=== PATIENT | male | born 1930 | race Caucasian/White ===

== ENCOUNTER 2019-08-25 20:42 | Inpatient (IN) | payer MEDICARE, BC ==
--- NOTE | 2019-08-25 21:28 | EDM.PDOC ---
<KobePushpa - Last Filed: 08/25/19 21:28> ED HPI GENERAL MEDICAL PROBLEM - General Chief Complaint: General Stated Complaint: KNEE Time Seen by Provider: 08/25/19 21:28 Source of Information: Reports: Patient History Limitations: Reports: No Limitations - Related Data Allergies Allergy/AdvReac Type Severity Reaction Status Date / Time No Known Allergies Allergy Verified 08/25/19 21:00 Past Medical History HEENT History: Reports: Hard of Hearing, Impaired Vision Cardiovascular History: Reports: Afib, Hypertension Genitourinary History: Reports: Prostate Disorder Neurological History: Reports: Concussion Psychiatric History: Reports: Dementia Hematologic History: Reports: Anticoagulation Therapy Social & Family History - Tobacco Use Smoking Status *Q: Former Smoker Used Tobacco, but Quit: Yes Month/Year Tobacco Last Used: 2004 Course - Vital Signs Last Recorded V/S: Last Vital Signs Temp 37.5 C 08/25/19 21:18 Pulse 89 08/25/19 21:18 Resp 20 08/25/19 23:20 BP 152/81 H 08/25/19 23:20 Pulse Ox 94 L 08/25/19 23:20 - Orders/Labs/Meds Labs: Laboratory Tests 08/25/19 08/25/19 08/25/19 Range/Units 21:32 21:32 21:53 WBC 9.4 (4.5-11.0) K/uL RBC 4.05 L (4.30-5.90) M/uL Hgb 12.7 (12.0-15.0) g/dL Hct 39.2 L (40.0-54.0) % MCV 97 (80-98) fL MCH 31 (27-31) pg MCHC 32 (32-36) % Plt Count 308 (150-400) K/uL Neut % (Auto) 84 H (36-66) % Lymph % (Auto) 6 L (24-44) % [place] % (Auto) 10 H (2-6) % Eos % (Auto) 0 L (2-4) % Baso % (Auto) 0 (0-1) % PT 15.1 H (9.5-12.0) sec INR 1.43 H (0.80-1.20) Urine Color [place] A (YELLOW) Urine Appearance Clear (CLEAR) Urine pH 5.5 (5.0-8.0) Ur Specific [place] >= 1.030 (1.008-1.030) Urine Protein 100 H (NEGATIVE) mg/dL Urine Glucose (UA) Negative (NEGATIVE) mg/dL Urine Ketones Negative (NEGATIVE) mg/dL Urine Occult Blood Moderate H (NEGATIVE) Urine Nitrite Negative (NEGATIVE) Urine Bilirubin Small H (NEGATIVE) Urine Urobilinogen 1.0 (0.2-1.0) EU/dL Ur Leukocyte Esterase Negative (NEGATIVE) Urine RBC 5-10 H (0-5) Urine WBC Not seen (0-5) Ur Epithelial Cells Not seen Amorphous Sediment Many Urine Bacteria Not seen Urine Mucus Not seen Departure - Departure Disposition: Admitted As Inpatient 66 Clinical Impression: Knee pain, right, Weakness generalized - Discharge Information <Amie Luciano - Last Filed: 08/26/19 00:23> ED HPI GENERAL MEDICAL PROBLEM - General Source of Information: Reports: Patient, Family (Daughter Keeley Dickson) History Limitations: Reports: No Limitations - History of Present Illness INITIAL COMMENTS - FREE TEXT/NARRATIVE: chief complaint; right knee pain and fall at home This is a 89 year old male present to the ER with Daughter Keeley and Grandchildren. The family reports this morning, Mr. Figueroa's right knee was painful, difficult to walk. Then this evening he was in the bathroom and fell. He got wedged between the toilet and the tub. Family was able to get him up quickly. He has been living with his Daughter since January, but now she reports she is unable to care for her Father, Both her and her work during the day. She feels it is unsafe for him to be at home alone during the day. During the past year he has been in two Nursing Homes, [facility] [place], [place]. and [facility] in [place], [place]. He is also a . Family is not willing to take Mr. Peterson home unless he is able to walk. Onset: Sudden (right knee), Gradual (Family reports gradual decline in health the past few years. ) Duration: Getting Worse (weakness) Location: Reports: Back (low back pain from fall), Lower Extremity, Right ( right knee pain without injury. ), Generalized Quality: Reports: Ache, Pressure Severity: Mild Improves with: Reports: Rest Worsens with: Reports: Movement Associated Symptoms: Reports: Weakness Social & Family History - Living Situation & Occupation Living situation: Reports: , with Family Occupation: Retired (Lives with his only Child Keeley Dickson in [place], [place]. His 7 years ago.) ED ROS GENERAL - Review of Systems Review Of Systems: See Below Constitutional: Reports: Weakness, Fatigue HEENT: Reports: No Symptoms, Glasses (wears glasses) Respiratory: Reports: No Symptoms Cardiovascular: Reports: No Symptoms, Other (chronic AFib with coumadin therapy. ) Endocrine: Reports: No Symptoms GI/Abdominal: Reports: No Symptoms : Reports: Frequency, Urgency Musculoskeletal: Reports: Back Pain (chronic low back pain for months), Joint Pain (right knee pain without injury) Skin: Reports: Change in Color (lower legs with chronic discoloration . no signs of secondary infection) Neurological: Reports: Difficulty Walking (pre-existing), Weakness (generalized weakness, progressive over the past year per Family), Gait Disturbance ( ambulates with cane) Psychiatric: Reports: No Symptoms Hematologic/Lymphatic: Reports: Other (coumadin therapy for chronic AFib) Immunologic: Reports: No Symptoms ED EXAM, GENERAL - Physical Exam Exam: See Below Exam Limited By: Physical Impairment General Appearance: Alert, No Apparent Distress, Other (frail elderly male. alert oriented to name, date and place.) Eye Exam: Bilateral Eye: EOMI, Normal Inspection, PERRL Ears: Normal External Exam Nose: Normal Inspection, Normal Mucosa, No Blood Throat/Mouth: Normal Inspection, Normal Lips, Normal Teeth, Normal Gums, Normal Voice, No Airway Compromise Head: Atraumatic, Normocephalic Neck: Normal Inspection, Supple, Non-Tender, Full Range of Motion Respiratory/Chest: No Respiratory Distress, Lungs Clear, No Accessory Muscle Use , Chest Non-Tender Cardiovascular: Regular Rate, Rhythm, No Murmur GI/Abdominal: Normal Bowel Sounds, Soft, Non-Tender, No Distention, No Abnormal Bruit, Pelvis Stable (Male) Exam: Deferred Rectal (Males) Exam: Deferred Back Exam: Normal Inspection, Full Range of Motion, Other (pain noted to low back) Extremities: Joint Swelling (right knee with edema, pain with any range of motion. redness noted to right knee but family reports had a heating pad to the knee all day.), Limited Range of Motion Neurological: Confused (re-orientated to place. but other funk able to recall past and recent events. ) Psychiatric: Normal Affect, Normal Mood Skin Exam: Warm, Dry, Intact, Normal Color, No Rash Lymphatic: No Adenopathy Course - Re-Assessments/Exams Free Text/Narrative Re-Assessment/Exam: 08/26/19 00:18 labs; cbc wbc 9.4, hgb 12.7, hct 39.2 PT 15.1, INR 1.43 ua with micro positive occult blood RBC 5-10 xray; right knee osteoarthritis, no acute bony injury is noted, lumbar spine age indeterminant compression fractures. Departure - Departure Time of Disposition: 00:20 Condition: Fair - Discharge Information *PRESCRIPTION DRUG MONITORING PROGRAM REVIEWED*: No *COPY OF PRESCRIPTION DRUG MONITORING REPORT IN PATIENT BRITTNI: No - Problem List & Annotations (1) Knee pain, right SNOMED Code(s): 41632467 Code(s): M25.561 - PAIN IN RIGHT KNEE Status: Acute Priority: High Current Visit: Yes Qualifiers: Chronicity: acute Qualified Code(s): M25.561 - Pain in right knee (2) Weakness generalized SNOMED Code(s): 30316743 Code(s): R53.1 - WEAKNESS Status: Acute Priority: High Current Visit: Yes - Problem List Review Problem List Initiated/Reviewed/Updated: Yes - Assessment/Plan Assessment:: will plan to admit to hospital for right knee pain, weakness will plan to have consult to OT and PT referral to [facility] for [facility] placement - Family is unable to care for Mr. Peterson, and not willing to take him home.
--- NOTE | 2019-08-25 23:39 | CRLCR ---
INDICATION: Pain after fall TECHNIQUE: Lumbar spine 3 view COMPARISON: None FINDINGS: Bones: Transitional appearance of lumbar spine. For the purposes of nomenclature the last rib-bearing vertebral body is labeled as T12. Transitional vertebra is labeled as S1. Using this nomenclature, there is decreased height of the L1 vertebral body anteriorly consistent with a compression fracture with loss of height between 50 and 75 percent. Joints: Small diffuse osteophytes with disc space narrowing at the L4-5 level. Facet hypertrophy L5-S1. Soft tissues: Atherosclerosis. IMPRESSION: Age-indeterminate compression fracture of the L1 vertebral body with loss of height between 50 and 75 percent anteriorly. Dictated by Cecilio Arias MD @ Aug 25 2019 11:35PM Signed by Dr. Cecilio Arias @ Aug 25 2019 11:38PM
--- NOTE | 2019-08-25 23:42 | CRLCR ---
Indication: Fall, pain and swelling. Technique: Right knee 2 views, 4 films Comparison: None Findings: Bones: Alignment is normal. No fractures or bone lesions. Joint spaces: Mild chondrocalcinosis with small osteophytes and small knee effusion. Soft tissues: Atherosclerosis. Impression: No evidence of fracture. Mild right knee osteoarthritis with small knee effusion. Dictated by Cecilio Arias MD @ Aug 25 2019 11:38PM Signed by Dr. Cecilio Arias @ Aug 25 2019 11:39PM
[2019-08-26] MEDS ORDERED: Docusate Sodium 100 MG Cap PO PRN (00:03)
[2019-08-26] MEDS ORDERED: Ondansetron 4 MG/2 ML SDV IV PRN (00:03)
[2019-08-26] MEDS ORDERED: Acetaminophen 325 MG Tab PO PRN (00:03)
[2019-08-26] MEDS ORDERED: Sodium Chloride 0.9% 10 ML Syringe FLUSH PRN (00:03)
[2019-08-26] MEDS ORDERED: oxyCODONE 5 MG Tab PO PRN (00:03)
[2019-08-26] MEDS ORDERED: Ondansetron 4 MG Tab.DIS PO PRN (00:03)
[2019-08-26] MEDS ORDERED: Bisacodyl 5 MG Tab PO PRN (00:03)
--- NOTE | 2019-08-26 00:24 | PCM.HP.2 ---
H&P History of Present Illness - General Date of Service: 08/25/19 Admit Problem/Dx: Admission Diagnosis/Problem Admission Diagnosis/Problem Knee pain Source of Information: Patient, Family History Limitations: Reports: Altered Mental Status - History of Present Illness Initial Comments - Free Text/Narative: - History of Present Illness INITIAL COMMENTS - FREE TEXT/NARRATIVE: chief complaint; right knee pain and fall at home This is a 89 year old male present to the ER with Daughter Keeley and Grandchildren. The family reports this morning, Mr. Figueroa's right knee was painful, difficult to walk. Then this evening he was in the bathroom and fell. He got wedged between the toilet and the tub. Family was able to get him up quickly. He has been living with his Daughter since January, but now she reports she is unable to care for her Father, Both her and her work during the day. She feels it is unsafe for him to be at home alone during the day. During the past year he has been in two Nursing Homes, [facility] [place], [place]. and [facility] in [place], [place]. He is also a . Family is not willing to take Mr. Peterson home unless he is able to walk. Onset: Sudden (right knee), Gradual (Family reports gradual decline in health the past few years. ) Duration: Getting Worse (weakness) Location: Reports: Back (low back pain from fall), Lower Extremity, Right ( right knee pain without injury. ), Generalized Quality: Reports: Ache, Pressure Severity: Mild Improves with: Reports: Rest Worsens with: Reports: Movement Associated Symptoms: Reports: Weakness Onset of Symptoms: Reports: Sudden (fall today at home. work up this morning with right knee pain), Gradual Location: Reports: Lower Extremity, Right (right knee pain without injury), Generalized (weakness for the past few years. ) Severity: Moderate Improves with: Reports: Rest Worsens with: Reports: Movement Context: Reports: Other (fall this evening in the bathroom.) Associated Symptoms: Reports: Weakness (worsen over the past year.) - Related Data Allergies/Adverse Reactions: Allergies Allergy/AdvReac Type Severity Reaction Status Date / Time No Known Allergies Allergy Verified 08/25/19 21:00 Home Medications: Home Meds Cyanocobalamin (Vitamin B-12) [Vitamin B-12] 2 tab PO DAILY 08/25/19 [History] Diltiazem [Diltiazem XR] 180 mg PO DAILY 08/25/19 [History] Finasteride 5 mg PO DAILY 08/25/19 [History] Losartan [Cozaar] 25 mg PO DAILY 08/25/19 [History] Warfarin [Coumadin] 1.5 tab PO ASDIRECTED 08/25/19 [History] Warfarin [Coumadin] 5 mg PO WEEKLY 08/25/19 [History] atorvaSTATin [Lipitor] 40 mg PO BEDTIME 08/25/19 [History] Past Medical History HEENT History: Reports: Hard of Hearing, Impaired Vision Cardiovascular History: Reports: Afib, Hypertension Genitourinary History: Reports: Prostate Disorder Neurological History: Reports: Concussion Psychiatric History: Reports: Dementia Hematologic History: Reports: Anticoagulation Therapy Social & Family History - Tobacco Use Smoking Status *Q: Former Smoker Used Tobacco, but Quit: Yes Month/Year Tobacco Last Used: 2004 - Living Situation & Occupation Living situation: Reports: , with Family Occupation: Retired (Lives with his only Child Keeley Dickson in [place], [place]. His 7 years ago.) H&P Review of Systems - Review of Systems: Review Of Systems: See Below General: Reports: Weakness, Fatigue HEENT: Reports: No Symptoms Pulmonary: Reports: No Symptoms Cardiovascular: Reports: No Symptoms, Other (anti-coagulation for chronic Afib) Gastrointestinal: Reports: No Symptoms Genitourinary: Reports: Frequency, Urgency Musculoskeletal: Reports: Back Pain (lower back pain - history of multi falls at home), Joint Pain (right knee pain) Skin: Reports: Other (lower legs with chronic discoloration and intermittent edema) Psychiatric: Reports: No Symptoms Neurological: Reports: Confusion, Pre-Existing Deficit, Difficulty Walking, Weakness Hematologic/Lymphatic: Reports: Easy Bleeding (coumadin therapy for chronic Afib ) Immunologic: Reports: No Symptoms Exam - Exam Exam: See Below - Vital Signs Vital Signs: Last Vital Signs Temp 37.5 C 08/25/19 21:18 Pulse 89 08/25/19 21:18 Resp 20 08/25/19 23:20 BP 152/81 H 08/25/19 23:20 Pulse Ox 94 L 08/25/19 23:20 Weight: 95.254 kg - Exam General: Alert, Cooperative, Other (mild confusion to where he is, but able to recall past and current events. talkative) HEENT: PERRLA, Conjunctiva Clear, EOMI, Hearing Intact, Mucosa Moist & Notus, Nares Patent, Glasses Neck: Supple, Trachea Midline Lungs: Clear to Auscultation, Normal Respiratory Effort, Decreased Breath Sounds Cardiovascular: Irregular Rhythm GI/Abdominal Exam: Normal Bowel Sounds, Soft, Non-Tender, No Distention, No Abnormal Bruit, Pelvis Stable (Male) Exam: Deferred Rectal (Males) Exam: Deferred Back Exam: Normal Inspection (back is without any sign of trauma, no abrasion, scrapes, no bruising, no lumps or bumps or hematoma. tender to exam low back.), Other (low back pain ) Extremities: Pedal Edema, Limited Range of Motion (right knee increased pain with any range of motion. ) Peripheral Pulses: 2+: Posterior Tibial (L), Posterior Tibial (R) Skin: Warm, Dry, Ecchymosis (chronic lower legs.) Neurological: Strength Equal Bilateral, Normal Speech, Normal Tone Neuro Extensive - Mental Status: Alert, Normal Mood/Affect, Memory Intact, Disorientation to Place Neuro Extensive - Motor, Sensory, Reflexes: Motor/Sensory Deficits Psychiatric: Alert, Normal Affect, Normal Mood - Patient Data Lab Results Last 24 hrs: Laboratory Results - last 24 hr 08/25/19 08/25/19 08/25/19 Range/Units 21:32 21:32 21:53 WBC 9.4 (4.5-11.0) K/uL RBC 4.05 L (4.30-5.90) M/uL Hgb 12.7 (12.0-15.0) g/dL Hct 39.2 L (40.0-54.0) % MCV 97 (80-98) fL MCH 31 (27-31) pg MCHC 32 (32-36) % Plt Count 308 (150-400) K/uL Neut % (Auto) 84 H (36-66) % Lymph % (Auto) 6 L (24-44) % [place] % (Auto) 10 H (2-6) % Eos % (Auto) 0 L (2-4) % Baso % (Auto) 0 (0-1) % PT 15.1 H (9.5-12.0) sec INR 1.43 H (0.80-1.20) Urine Color [place] A (YELLOW) Urine Appearance Clear (CLEAR) Urine pH 5.5 (5.0-8.0) Ur Specific [place] >= 1.030 (1.008-1.030) Urine Protein 100 H (NEGATIVE) mg/dL Urine Glucose (UA) Negative (NEGATIVE) mg/dL Urine Ketones Negative (NEGATIVE) mg/dL Urine Occult Blood Moderate H (NEGATIVE) Urine Nitrite Negative (NEGATIVE) Urine Bilirubin Small H (NEGATIVE) Urine Urobilinogen 1.0 (0.2-1.0) EU/dL Ur Leukocyte Esterase Negative (NEGATIVE) Urine RBC 5-10 H (0-5) Urine WBC Not seen (0-5) Ur Epithelial Cells Not seen Amorphous Sediment Many Urine Bacteria Not seen Urine Mucus Not seen Result Diagrams: 08/25/19 21:32 - Problem List (1) Knee pain, right SNOMED Code(s): 41804952 ICD Code: M25.561 - PAIN IN RIGHT KNEE Status: Acute Priority: High Current Visit: Yes Qualifiers: Chronicity: acute Qualified Code(s): M25.561 - Pain in right knee (2) Weakness generalized SNOMED Code(s): 77302078 ICD Code: R53.1 - WEAKNESS Status: Acute Priority: High Current Visit: Yes (3) Anticoagulant long-term use SNOMED Code(s): 680781155 ICD Code: Z79.01 - CUSTODIAL (CURRENT) USE OF ANTICOAGULANTS Status: Acute Priority: High Current Visit: Yes (4) Atrial fibrillation SNOMED Code(s): 95543025 ICD Code: I48.91 - UNSPECIFIED ATRIAL FIBRILLATION Status: Acute Priority : High Current Visit: Yes Qualifiers: Atrial fibrillation type: longstanding persistent Qualified Code(s): I48.11 - Longstanding persistent atrial fibrillation Problem List Initiated/Reviewed/Updated: Yes Orders Last 24hrs: Active Orders 24 hr Category Date Time Status Cardiac Monitoring [RC] .As Directed Care 08/26/19 00:03 Active Intake and Output [RC] QSHIFT Care 08/26/19 00:03 Active Notify Provider Vital Signs [RC] ASDIRECTED Care 08/26/19 00:03 Active Oxygen Therapy [RC] PRN Care 08/26/19 00:03 Active Pulse Oximetry [RC] PRN Care 08/26/19 00:03 Active Up With Assistance [RC] ASDIRECTED Care 08/26/19 00:03 Active VTE/DVT Education [RC] Per Unit Routine Care 08/26/19 00:03 Active Vital Signs [RC] Q4H Care 08/26/19 00:03 Active Consult to Case Management/Certified Shorthand Reporter [CONS] Cons 08/26/19 00:03 Active Routine OT Evaluation and Treatment [CONS] Routine Cons 08/26/19 00:03 Active PT Evaluation and Treatment [CONS] Routine Cons 08/26/19 00:03 Active 2 Gram Sodium Diet [DIET] Diet 08/26/19 Breakfast Active INR,PT,PROTHROMBIN TIME [COAG] AM Lab 08/26/19 05:11 Ordered INR,PT,PROTHROMBIN TIME [COAG] AM Lab 08/27/19 05:11 Ordered Acetaminophen [Tylenol] Med 08/26/19 00:03 Active 650 mg PO Q4H PRN Bisacodyl [Dulcolax] Med 08/26/19 00:03 Active 5 mg PO DAILY PRN Cyanocobalamin (Vitamin B12) [Vitamin B12] Med 08/26/19 09:00 Active 500 mcg PO DAILY Diltiazem [Cardizem CD] Med 08/26/19 09:00 Active 180 mg PO DAILY Docusate Sodium [Colace] Med 08/26/19 00:03 Active 100 mg PO BID PRN Finasteride [Proscar] Med 08/26/19 09:00 Active 5 mg PO DAILY Losartan [Cozaar] Med 08/26/19 09:00 Active 25 mg PO DAILY Ondansetron [Zofran ODT] Med 08/26/19 00:03 Active 4 mg PO Q6H PRN Ondansetron [Zofran] Med 08/26/19 00:03 Active 4 mg IV Q4H PRN Sodium Chloride 0.9% [Saline Flush] Med 08/26/19 00:03 Active 10 ml FLUSH ASDIRECTED PRN Warfarin [Coumadin] Med 08/31/19 13:00 Active 5 mg PO Q7D atorvaSTATin [Lipitor] Med 08/26/19 21:00 Active 40 mg PO BEDTIME oxyCODONE Med 08/26/19 00:03 Active 5 mg PO Q4H PRN Saline Lock Insert [OM.PC] Routine Oth 08/26/19 00:03 Ordered Sequential Compression Device [OM.PC] Per Unit Routine Oth 08/26/19 00:03 Ordered Resuscitation Status Routine Resus Stat 08/25/19 22:33 Ordered Medication Orders Acetaminophen (Tylenol) 650 mg PO Q4H PRN PRN Reason: Pain (Mild 1-3)/fever Atorvastatin Calcium (Lipitor) 40 mg PO BEDTIME JANE Bisacodyl (Dulcolax) 5 mg PO DAILY PRN PRN Reason: Constipation Cyanocobalamin (Vitamin B12) 500 mcg PO DAILY JANE Diltiazem HCl (Cardizem Cd) 180 mg PO DAILY JANE Docusate Sodium (Colace) 100 mg PO BID PRN PRN Reason: Constipation Finasteride (Proscar) 5 mg PO DAILY JANE Losartan Potassium (Cozaar) 25 mg PO DAILY JANE Ondansetron HCl (Zofran Odt) 4 mg PO Q6H PRN PRN Reason: Nausea able to take PO Ondansetron HCl (Zofran) 4 mg IV Q4H PRN PRN Reason: Nausea/Vomiting Oxycodone HCl (Oxycodone) 5 mg PO Q4H PRN PRN Reason: Pain (moderate 4-6) Sodium Chloride (Saline Flush) 10 ml FLUSH ASDIRECTED PRN PRN Reason: Keep Vein Open Warfarin Sodium (Coumadin) 5 mg PO Q7D JANE Assessment/Plan Comment:: ASSESSMENT AND PLAN - chief complaint; right knee pain and fall at home This is a 89 year old male present to the ER with Daughter Keeley and Grandchildren. The family reports this morning, Mr. Figueroa's right knee was painful, difficult to walk. Then this evening he was in the bathroom and fell. He got wedged between the toilet and the tub. Family was able to get him up quickly. He has been living with his Daughter since January, but now she reports she is unable to care for her Father, Both her and her work during the day. She feels it is unsafe for him to be at home alone during the day. The fall at home this evening confirmed her worry related to his safty at home. During the past year he has been in two Nursing Homes, [facility] [place], [place]. and [facility] in [place], [place]. He is also a [place]. Family is not willing to take Mr. Peterson home unless he is able to walk. Onset: Sudden (right knee), Gradual (Family reports gradual decline in health the past few years. ) Duration: Getting Worse (weakness) Xray of lumbar spine and right knee - no acute bony injury, osteoarthritis labs; no acute infection noted Weakness, right knee pain - this is a 89 year old male with generalized weakness and frequent falls. Unfortunately his family is unable to care for him and it is not safe for him to be at home. He is not able to ambulate without significant assistance from family. -consult to PO -consult to OT -consult to Flight Coordinator for [facility] Placement Anti-coagulation therapy for chronic A-fib -Coumandin per protocol -INR/PT in am Maintenance issues - - DVT prophylaxis - Coumadin therapy - GI prophylaxis - PPI - Nutrition - low salt - Ruiz catheter - not indicated CODE STATUS - DNR/DNI Admission justification - This patient will be admitted for inpatient services and is medically appropriate meeting medical necessity for inpatient admission as outlined in my documentation. I reasonably expect the patient will require inpatient services that span a period time over 2 midnights. I reasonably expect this patient to be discharged or transferred within 96 hours after [facility]. Disposition - anticipate discharge [facility] or home after the hospital stay Daughter (only child) Keeley Dickson [phone] Primary care physician - Dr Khushbu Magdaleno M.D. - Mortality Measure Prognosis:: Poor (declining in health due to advance age)
[2019-08-26] MEDS: Losartan 25 MG Tab PO SCH (08:52)
[2019-08-26] MEDS: Cyanocobalamin (Vitamin B12) 1,000 MCG Tab PO SCH (08:52)
[2019-08-26] MEDS: Diltiazem 180 MG Cap.CD PO SCH (08:52)
[2019-08-26] MEDS: Finasteride 5 MG Tab PO SCH (08:53)
[2019-08-26] MEDS: Acetaminophen 500 MG Tab PO SCH ×3 (09:28→20:37)
[2019-08-26] MEDS ORDERED: predniSONE 20 MG Tab PO ONE (10:00)
--- NOTE | 2019-08-26 10:02 | PCM.PN ---
- General Info Date of Service: 08/26/19 Subjective Update: There were no acute events overnight following admission. Patient is pleasantly confused but not able to offer much in the way of reliable history. He does say that his right knee is still sore but he thinks it's better today. He has not had any fevers. He has been up with his cane and standby assist. No abnormalities noted on telemetry. Functional Status: Reports: Pain Controlled, Tolerating Diet - Review of Systems General: Reports: Weakness Musculoskeletal: Reports: Joint Pain - Patient Data Vitals - Most Recent: Last Vital Signs Temp 36.2 C 08/26/19 07:00 Pulse 64 08/26/19 07:00 Resp 22 H 08/26/19 07:00 BP 149/84 H 08/26/19 08:52 Pulse Ox 94 L 08/26/19 07:00 Weight - Most Recent: 95.254 kg I&O - Last 24 Hours: Intake & Output 08/25/19 08/26/19 08/26/19 22:59 06:59 14:59 Intake Total 1540 Output Total 250 Balance -250 1540 Lab Results Last 24 Hours: Laboratory Results - last 24 hr 08/25/19 08/25/19 08/25/19 Range/Units 21:32 21:32 21:53 WBC 9.4 (4.5-11.0) K/uL RBC 4.05 L (4.30-5.90) M/uL Hgb 12.7 (12.0-15.0) g/dL Hct 39.2 L (40.0-54.0) % MCV 97 (80-98) fL MCH 31 (27-31) pg MCHC 32 (32-36) % Plt Count 308 (150-400) K/uL Neut % (Auto) 84 H (36-66) % Lymph % (Auto) 6 L (24-44) % Hill % (Auto) 10 H (2-6) % Eos % (Auto) 0 L (2-4) % Baso % (Auto) 0 (0-1) % PT 15.1 H (9.5-12.0) sec INR 1.43 H (0.80-1.20) Urine Color [place] A (YELLOW) Urine Appearance Clear (CLEAR) Urine pH 5.5 (5.0-8.0) Ur Specific [place] >= 1.030 (1.008-1.030) Urine Protein 100 H (NEGATIVE) mg/dL Urine Glucose (UA) Negative (NEGATIVE) mg/dL Urine Ketones Negative (NEGATIVE) mg/dL Urine Occult Blood Moderate H (NEGATIVE) Urine Nitrite Negative (NEGATIVE) Urine Bilirubin Small H (NEGATIVE) Urine Urobilinogen 1.0 (0.2-1.0) EU/dL Ur Leukocyte Esterase Negative (NEGATIVE) Urine RBC 5-10 H (0-5) Urine WBC Not seen (0-5) Ur Epithelial Cells Not seen Amorphous Sediment Many Urine Bacteria Not seen Urine Mucus Not seen 08/26/19 Range/Units 04:00 WBC (4.5-11.0) K/uL RBC (4.30-5.90) M/uL Hgb (12.0-15.0) g/dL Hct (40.0-54.0) % MCV (80-98) fL MCH (27-31) pg MCHC (32-36) % Plt Count (150-400) K/uL Neut % (Auto) (36-66) % Lymph % (Auto) (24-44) % Hill % (Auto) (2-6) % Eos % (Auto) (2-4) % Baso % (Auto) (0-1) % PT 14.7 H (9.5-12.0) sec INR 1.39 H (0.80-1.20) Urine Color (YELLOW) Urine Appearance (CLEAR) Urine pH (5.0-8.0) Ur Specific [place] (1.008-1.030) Urine Protein (NEGATIVE) mg/dL Urine Glucose (UA) (NEGATIVE) mg/dL Urine Ketones (NEGATIVE) mg/dL Urine Occult Blood (NEGATIVE) Urine Nitrite (NEGATIVE) Urine Bilirubin (NEGATIVE) Urine Urobilinogen (0.2-1.0) EU/dL Ur Leukocyte Esterase (NEGATIVE) Urine RBC (0-5) Urine WBC (0-5) Ur Epithelial Cells Amorphous Sediment Urine Bacteria Urine Mucus Med Orders - Current: Current Medications Acetaminophen (Tylenol Extra Strength) 1,000 mg PO TID [facility] Last Admin: 08/26/19 09:28 Dose: 1,000 mg Atorvastatin Calcium (Lipitor) 40 mg PO BEDTIME [facility] Bisacodyl (Dulcolax) 5 mg PO DAILY PRN PRN Reason: Constipation Cyanocobalamin (Vitamin B12) 500 mcg PO DAILY [facility] Last Admin: 08/26/19 08:52 Dose: 500 mcg Diltiazem HCl (Cardizem Cd) 180 mg PO DAILY [facility] Last Admin: 08/26/19 08:52 Dose: 180 mg Docusate Sodium (Colace) 100 mg PO BID PRN PRN Reason: Constipation Finasteride (Proscar) 5 mg PO DAILY [facility] Last Admin: 08/26/19 08:53 Dose: 5 mg Losartan Potassium (Cozaar) 25 mg PO DAILY [facility] Last Admin: 08/26/19 08:52 Dose: 25 mg Ondansetron HCl (Zofran Odt) 4 mg PO Q6H PRN PRN Reason: Nausea able to take PO Ondansetron HCl (Zofran) 4 mg IV Q4H PRN PRN Reason: Nausea/Vomiting Oxycodone HCl (Oxycodone) 5 mg PO Q4H PRN PRN Reason: Pain (moderate 4-6) Prednisone (Prednisone) 20 mg PO ONETIME ONE Stop: 08/26/19 10:01 Prednisone (Prednisone) 20 mg PO WITHBREAKFAST [facility] Stop: 08/28/19 08:01 Sodium Chloride (Saline Flush) 10 ml FLUSH ASDIRECTED PRN PRN Reason: Keep Vein Open Warfarin Sodium (Coumadin) 7.5 mg PO Mo@1300 [facility] Discontinued Medications Acetaminophen (Tylenol) 650 mg PO Q4H PRN PRN Reason: Pain (Mild 1-3)/fever Warfarin Sodium (Coumadin) 5 mg PO Mo@1300 [facility] - Exam Quality Assessment: No: Supplemental Oxygen General: Alert, Cooperative, No Acute Distress. No: Oriented Lungs: Normal Respiratory Effort Cardiovascular: Regular Rate GI/Abdominal Exam: Soft, No Distention Extremities: No Pedal Edema, Joint Swelling (right knee ), Increased Warmth ( right knee) Skin: Warm, Dry Psy/Mental Status: Alert, Normal Affect - Problem List Review Problem List Initiated/Reviewed/Updated: Yes - My Orders Last 24 Hours: My Active Orders 08/26/19 09:15 Acetaminophen [Tylenol Extra Strength] 1,000 mg PO TID 08/26/19 09:56 URIC ACID [CHEM] Routine 08/26/19 09:57 predniSONE 20 mg PO ONETIME ONE 08/26/19 09:58 BASIC METABOLIC PANEL,BMP [CHEM] Routine 08/26/19 10:00 Discontinue Telemetry Monitoring [Cardiac Monitoring Discontinue] [RC] Click to Edit 08/27/19 08:00 predniSONE 20 mg PO WITHBREAKFAST 08/31/19 13:00 Warfarin [Coumadin] 7.5 mg PO Mo@1300 - Plan Plan:: ASSESSMENT AND PLAN - Right knee pain - no obvious signs of trauma. Gout versus pseudogout would be considered with swelling and warmth. Does not appear to be infected. INR is low so hemarthrosis unlikely. -uric acid level -prednisone x3 days -consult to PO -consult to OT -consult to [employer] to consider Snf Placement Anti-coagulation therapy for chronic A-fib - atrial fibrillation is rate controlled. INR subtherapeutic. -Daily warfarin -Continue rate control -INR/PT in am Maintenance issues - - DVT prophylaxis - Coumadin therapy - GI prophylaxis - PPI - Nutrition - low salt Disposition - anticipate discharge Snf or home with home care after the hospital stay Daughter (only child) Keeley Dickson [phone] [place] M.D.
[2019-08-26] MEDS: Potassium Chloride 20 MEQ Tab.ER PO SCH ×2 (11:30→20:37)
[2019-08-26] MEDS ORDERED: Warfarin 2.5 MG, Warfarin 5 MG PO SCH ×2 (13:00)
[2019-08-26] MEDS ORDERED: atorvaSTATin 20 MG Tab PO SCH (21:00)
[2019-08-27] MEDS ORDERED: predniSONE 20 MG Tab PO SCH (08:00)
[2019-08-27] MEDS: Diltiazem 180 MG Cap.CD PO SCH (08:50)
[2019-08-27] MEDS: Losartan 25 MG Tab PO SCH (08:50)
[2019-08-27] MEDS: Acetaminophen 500 MG Tab PO SCH (08:51)
[2019-08-27] MEDS: Cyanocobalamin (Vitamin B12) 1,000 MCG Tab PO SCH (08:51)
[2019-08-27] MEDS: Finasteride 5 MG Tab PO SCH (08:51)
[2019-08-27] MEDS ORDERED: Warfarin 5 MG Tab PO SCH (13:00)
--- NOTE | 2019-08-27 13:15 | PCM.DCSUM1 ---
Discharge Summary - Hospital Course Brief History: 89-year-old male with history of dementia, BPH who presented with right knee pain and weakness as well as a fall at home. He was admitted for management of right knee pain and swelling. Diagnosis: Stroke: No - Discharge Data Discharge Date: 08/27/19 Discharge Disposition: Home, W Home Health Agency 06 Condition: Good - Referral to Home Health Date of Face to Face Encounter: 08/27/19 Reason for Homebound Status: travel taxing due to acute knee pain Primary Care Physician: Olivia Ring MD Skilled Need: PT - Discharge Diagnosis/Problem(s) (1) Pseudogout of right knee SNOMED Code(s): 696913989, 840359230 ICD Code: M11.261 - OTHER CHONDROCALCINOSIS, RIGHT KNEE Status: Acute Current Visit: Yes (2) Hypokalemia SNOMED Code(s): 13959152 ICD Code: E87.6 - HYPOKALEMIA Status: Acute Current Visit: Yes (3) Atrial fibrillation SNOMED Code(s): 68838991 ICD Code: I48.91 - UNSPECIFIED ATRIAL FIBRILLATION Status: Chronic Priority: High Current Visit: Yes Qualifiers: Atrial fibrillation type: permanent Qualified Code(s): I48.21 - Permanent atrial fibrillation (4) Dementia SNOMED Code(s): 35977549 ICD Code: F03.90 - UNSPECIFIED DEMENTIA WITHOUT BEHAVIORAL DISTURBANCE Status: Chronic Current Visit: No Qualifiers: Dementia type: Alzheimer's disease Alzheimer's disease onset: late-onset - Patient Summary/Data Consults: Consultations 08/26/19 00:03 Consult to Case Management/[employer] [CONS] Routine Comment: Physician Instructions: Service(s) to be Consulted: Case Manage&Social Servic Reason for Consult: custodial placement OT Evaluation and Treatment [CONS] Routine Please Evaluate and Treat. OT Reason for Consult: ADL's This query below is only for informational purposes and is not editable. PT Evaluation and Treatment [CONS] Routine Please Evaluate and Treat. PT Reason for Consult: Ambulation This query below is only for informational purposes and is not editable. Hospital Course: Jarrett presented to the emergency room with weakness and right knee pain and swelling. He had fallen at home because of the severity of the pain and weakness. Workup in the emergency room was fairly unremarkable. No significant lab abnormalities and his white count was normal. An x-ray of the knee did not show significant arthritis or fracture. He was admitted to the hospital for pain control, physical therapy and additional workup. The morning after admission for repeat evaluation was suspicious for pseudogout because of swelling, warmth and effusion of the right knee. He received a dose of prednisone the morning after admission as well as the morning of discharge. His swelling has essentially resolved. His pain is dramatically better but not quite resolved. He has been up and walking around with a walker. He feels safe at this time and his daughter feels comfortable with him home with his current level of ambulation. Patient and family were interested in some physical therapy from home health at the time of discharge. He will receive 2 more doses of prednisone after hospital discharge. - Patient Instructions Diet: Regular Diet as Tolerated Activity: As Tolerated Showering/Bathing: May Shower Notify Provider of: Increased Pain - Discharge Plan *PRESCRIPTION DRUG MONITORING PROGRAM REVIEWED*: No *COPY OF PRESCRIPTION DRUG MONITORING REPORT IN PATIENT BRITTNI: No Prescriptions/Med Rec: predniSONE 20 mg PO WITHBREAKFAST #2 tablet Home Medications: Home Meds Cyanocobalamin (Vitamin B-12) [Vitamin B-12] 2 tab PO DAILY 08/25/19 [History] Diltiazem [Dilacor XR] 180 mg PO DAILY 08/25/19 [History] Finasteride 5 mg PO DAILY 08/25/19 [History] Losartan [Cozaar] 25 mg PO DAILY 08/25/19 [History] Warfarin [Coumadin] 1.5 tab PO ASDIRECTED 08/25/19 [History] Warfarin [Coumadin] 5 mg PO WEEKLY 08/25/19 [History] atorvaSTATin [Lipitor] 40 mg PO BEDTIME 08/25/19 [History] predniSONE 20 mg PO WITHBREAKFAST #2 tablet 08/27/19 [Rx] Oxygen Therapy Mode: Room Air Patient Handouts: Calcium Pyrophosphate Deposition Referrals: Olivia Ring MD [Primary Care Provider] - (f/u as needed if symptoms do not continue to get better) - Discharge Summary/Plan Comment DC Time >30 min.: No - Patient Data Vitals - Most Recent: Last Vital Signs Temp 35.2 C 08/27/19 10:57 Pulse 58 L 08/27/19 10:57 Resp 20 08/27/19 10:57 BP 148/73 H 08/27/19 10:57 Pulse Ox 98 08/27/19 10:57 Weight - Most Recent: 95.254 kg I&O - Last 24 hours: Intake & Output 08/26/19 08/27/19 08/27/19 22:59 06:59 14:59 Intake Total 1000 Balance 1000 Lab Results - Last 24 hrs: Laboratory Results - last 24 hr 08/27/19 Range/Units 04:24 PT 14.8 H (9.5-12.0) sec INR 1.40 H (0.80-1.20) Med Orders - Current: Current Medications Acetaminophen (Tylenol Extra Strength) 1,000 mg PO TID [facility] Last Admin: 08/27/19 08:51 Dose: 1,000 mg Atorvastatin Calcium (Lipitor) 40 mg PO BEDTIME [facility] Last Admin: 08/26/19 20:37 Dose: 40 mg Bisacodyl (Dulcolax) 5 mg PO DAILY PRN PRN Reason: Constipation Cyanocobalamin (Vitamin B12) 500 mcg PO DAILY [facility] Last Admin: 08/27/19 08:51 Dose: 500 mcg Diltiazem HCl (Cardizem Cd) 180 mg PO DAILY [facility] Last Admin: 08/27/19 08:50 Dose: 180 mg Docusate Sodium (Colace) 100 mg PO BID PRN PRN Reason: Constipation Finasteride (Proscar) 5 mg PO DAILY [facility] Last Admin: 08/27/19 08:51 Dose: 5 mg Losartan Potassium (Cozaar) 25 mg PO DAILY [facility] Last Admin: 08/27/19 08:50 Dose: 25 mg Ondansetron HCl (Zofran Odt) 4 mg PO Q6H PRN PRN Reason: Nausea able to take PO Ondansetron HCl (Zofran) 4 mg IV Q4H PRN PRN Reason: Nausea/Vomiting Oxycodone HCl (Oxycodone) 5 mg PO Q4H PRN PRN Reason: Pain (moderate 4-6) Prednisone (Prednisone) 20 mg PO WITHBREAKFAST [facility] Stop: 08/28/19 08:01 Last Admin: 08/27/19 08:50 Dose: 20 mg Sodium Chloride (Saline Flush) 10 ml FLUSH ASDIRECTED PRN PRN Reason: Keep Vein Open Warfarin Sodium (Coumadin) 10 mg PO DAILY@1300 [facility] Discontinued Medications Acetaminophen (Tylenol) 650 mg PO Q4H PRN PRN Reason: Pain (Mild 1-3)/fever Potassium Chloride (Klor-Con M20) 40 meq PO BID [facility] Stop: 08/26/19 21:01 Last Admin: 08/26/19 20:37 Dose: 40 meq Prednisone (Prednisone) 20 mg PO ONETIME ONE Stop: 08/26/19 10:01 Last Admin: 08/26/19 10:55 Dose: 20 mg Warfarin Sodium 2.5 mg/ (Warfarin Sodium 5 mg) 7.5 mg PO DAILY@1300 [facility] Last Admin: 08/26/19 12:49 Dose: 7.5 mg - Exam Quality Assessment: Denies: Supplemental Oxygen General: Reports: Alert, Cooperative, No Acute Distress. Denies: Oriented Lungs: Reports: Normal Respiratory Effort GI/Abdominal Exam: Soft, No Distention Extremities: No Pedal Edema, Increased Warmth (Mild warmth of the right knee). No: Joint Swelling (No right knee swelling) Skin: Reports: Warm, Dry Psy/Mental Status: Reports: Alert, Normal Affect
[2019-08-31] MEDS ORDERED: Warfarin 5 MG Tab PO SCH (13:00)
[2019-08-31] MEDS ORDERED: Warfarin 2.5 MG Tab PO SCH (13:00)
== END 2019-08-27 15:30 | disposition home health service (06) | DRG 554 ==
LOC: JP.ED 20:42 → EDBD 20:42 → JP.MS 22:32
PROVIDERS: ADMIT Internal Medicine; ATTEND Internal Medicine
DX: M25.561 Pain in right knee (principal); R53.1 Weakness; I48.91 Unspecified atrial fibrillation; M11.261 Other chondrocalcinosis, right knee; F03.90 Unspecified dementia, unspecified severity, without behavioral disturbance, psychotic disturbance, mood disturbance, and anxiety; I48.21 Permanent atrial fibrillation; E87.6 Hypokalemia; W18.30XA Fall on same level, unspecified, initial encounter; Z66 Do not resuscitate; G30.1 Alzheimer's disease with late onset; F02.80 Dementia in other diseases classified elsewhere, unspecified severity, without behavioral disturbance, psychotic disturbance, mood disturbance, and anxiety; I10 Essential (primary) hypertension; Z79.01 Long term (current) use of anticoagulants; Z79.899 Other long term (current) drug therapy; Z87.891 Personal history of nicotine dependence; W19.XXXA Unspecified fall, initial encounter; Y92.002 Bathroom of unspecified non-institutional (private) residence as the place of occurrence of the external cause
CPT/HCPCS: 36415; 72100; 73562-RT; 80048; 81001; 84550; 85025; 85610; 97162-GP; 97165-GO; 97530-GP; 99283; 99285-25; A9270-GY

== ENCOUNTER 2020-01-18 15:45 | Observation (INO) | payer MEDICARE, BC ==
--- NOTE | 2020-01-18 16:03 | EDM.PDOC ---
<Ajit Rushing - Last Filed: 01/18/20 18:37> ED HPI GENERAL MEDICAL PROBLEM - General Chief Complaint: General Stated Complaint: FALL HURT L SHOULDER Time Seen by Provider: 01/18/20 16:02 - Related Data Allergies Allergy/AdvReac Type Severity Reaction Status Date / Time No Known Allergies Allergy Verified 08/25/19 21:00 Home Meds: Home Meds Cyanocobalamin (Vitamin B-12) [Vitamin B-12] 2 tab PO DAILY 08/25/19 [History] Diltiazem [Dilacor XR] 180 mg PO DAILY 08/25/19 [History] Finasteride 5 mg PO DAILY 08/25/19 [History] Losartan [Cozaar] 25 mg PO DAILY 08/25/19 [History] atorvaSTATin [Lipitor] 40 mg PO BEDTIME 08/25/19 [History] Cyanocobalamin (Vitamin B-12) [Vitamin B-12] 500 mcg PO DAILY 01/18/20 [History] Levothyroxine Sodium 0.1 mg PO DAILY 01/18/20 [History] ED EXAM, GENERAL - Physical Exam Exam: See Below Exam Limited By: No Limitations General Appearance: Alert, No Apparent Distress Ears: Normal External Exam Nose: Normal Inspection Throat/Mouth: Normal Inspection Head: Atraumatic, Normocephalic Neck: Non-Tender, Full Range of Motion Respiratory/Chest: Lungs Clear Cardiovascular: Regular Rate, Rhythm GI/Abdominal: Soft, Non-Tender Back Exam: Normal Inspection Extremities: Other (eccyhmosis left upper arm, no deformity) Neurological: Alert Psychiatric: Normal Affect Skin Exam: Warm, Dry, Other (diffuse 1st and 2nd brannon across mid and lower back.) Course - Vital Signs Last Recorded V/S: Last Vital Signs Temp 37.3 C 01/19/20 07:16 Pulse 56 L 01/19/20 07:16 Resp 16 01/19/20 07:16 BP 146/77 H 01/19/20 07:16 Pulse Ox 96 01/19/20 07:16 - Orders/Labs/Meds Orders: Active Orders 24 hr Category Date Time Status Shoulder Comp Lt [CR] Stat Exams 01/18/20 16:01 Taken Medication Orders Acetaminophen (Tylenol) 650 mg PO Q4H PRN PRN Reason: Pain (Mild 1-3)/fever Last Admin: 01/18/20 21:47 Dose: 650 mg Enoxaparin Sodium (Lovenox) 40 mg SUBCUT BEDTIME JANE Finasteride (Proscar) 5 mg PO DAILY JANE Haloperidol (Haldol) 1 mg PO Q2H PRN PRN Reason: Agitation Last Admin: 01/18/20 21:48 Dose: 1 mg Sodium Chloride (Normal Saline) 1,000 mls @ 75 mls/hr IV ASDIRECTED JANE Last Admin: 01/18/20 21:50 Dose: 75 mls/hr Levothyroxine Sodium (Synthroid) 100 mcg PO DAILY@0730 JANE Losartan Potassium (Cozaar) 25 mg PO DAILY JANE Melatonin (Melatonin) 9 mg PO BEDTIME JANE Last Admin: 01/18/20 21:48 Dose: 9 mg (Diltiazem [Dilacor (Xr] 180 Mg)) 180 mg PO DAILY JANE Ondansetron HCl (Zofran) 4 mg IV Q4H PRN PRN Reason: Nausea/Vomiting (Atorvastatin [ Lipitor] 40 Mg)*Pt Own Med* 0 each PO BEDTIME JANE Last Admin: 01/18/20 21:57 Dose: 1 each Polyethylene Glycol (Miralax) 17 gm PO DAILY PRN PRN Reason: Constipation Sodium Chloride (Saline Flush) 10 ml FLUSH ASDIRECTED PRN PRN Reason: Keep Vein Open Labs: Laboratory Tests 01/18/20 01/18/20 Range/Units 16:27 16:27 WBC 10.5 (4.5-11.0) K/uL RBC 4.36 (4.30-5.90) M/uL Hgb 13.1 (12.0-15.0) g/dL Hct 42.0 (40.0-54.0) % MCV 96 (80-98) fL MCH 30 (27-31) pg MCHC 31 L (32-36) % Plt Count 291 (150-400) K/uL Neut % (Auto) 82 H (36-66) % Lymph % (Auto) 6 L (24-44) % [place] % (Auto) 12 H (2-6) % Eos % (Auto) 0 L (2-4) % Baso % (Auto) 0 (0-1) % Sodium 140 (140-148) mmol/L Potassium 4.2 (3.6-5.2) mmol/L Chloride 106 (100-108) mmol/L Carbon Dioxide 30 (21-32) mmol/L Anion Gap 3.9 L (5.0-14.0) mmol/L BUN 23 H (7-18) mg/dL Creatinine 1.1 (0.8-1.3) mg/dL Est Cr Clr Drug Dosing 47.01 mL/min Estimated GFR (MDRD) > 60 (>60) Glucose 114 H (74-106) mg/dL Calcium 9.2 (8.5-10.1) mg/dL Total Bilirubin 1.4 H (0.2-1.0) mg/dL AST 19 (15-37) U/L ALT 20 (12-78) U/L Alkaline Phosphatase 115 (46-116) U/L Total Protein 6.3 L (6.4-8.2) g/dL Albumin 3.1 L (3.4-5.0) g/dL Globulin 3.2 (2.3-3.5) g/dL Albumin/Globulin Ratio 1.0 L (1.2-2.2) Meds: Medications Generic Name Dose Route Start Last Admin Trade Name Freq PRN Reason Stop Dose Admin Acetaminophen 650 mg 01/18/20 20:45 01/18/20 21:47 Tylenol PO 650 mg Q4H PRN Administration Pain (Mild 1-3)/fever Enoxaparin Sodium 40 mg 01/19/20 21:00 Lovenox SUBCUT BEDTIME JANE Finasteride 5 mg 01/19/20 09:00 Proscar PO DAILY JANE Haloperidol 1 mg 01/18/20 20:45 01/18/20 21:48 Haldol PO 1 mg Q2H PRN Administration Agitation Sodium Chloride 1,000 mls @ 75 mls/hr 01/18/20 20:45 01/18/20 21:50 Normal Saline IV 75 mls/hr ASDIRECTED JANE Administration Levothyroxine Sodium 100 mcg 01/19/20 07:30 Synthroid PO DAILY@0730 JANE Losartan Potassium 25 mg 01/19/20 09:00 Cozaar PO DAILY JANE Melatonin 9 mg 01/18/20 21:00 01/18/20 21:48 Melatonin PO 9 mg BEDTIME JANE Administration (Diltiazem [Dilacor 180 mg 01/19/20 09:00 Xr] 180 Mg) PO DAILY JANE Ondansetron HCl 4 mg 01/18/20 20:45 Zofran IV Q4H PRN Nausea/Vomiting (Atorvastatin [ 0 each 01/18/20 22:00 01/18/20 21:57 Lipitor] 40 Mg)*Pt PO 1 each Own Med* BEDTIME JANE Administration Polyethylene Glycol 17 gm 01/18/20 20:45 Miralax PO DAILY PRN Constipation Sodium Chloride 10 ml 01/18/20 20:45 Saline Flush FLUSH ASDIRECTED PRN Keep Vein Open Discontinued Medications Generic Name Dose Route Start Last Admin Trade Name Freq PRN Reason Stop Dose Admin Enoxaparin Sodium 40 mg 01/18/20 20:45 01/18/20 21:38 Lovenox SUBCUT 40 mg DAILY JANE Administration Sodium Chloride 1,000 mls @ 999 mls/hr 01/18/20 17:00 01/18/20 17:53 Normal Saline IV 999 mls/hr ASDIRECTED JANE Administration - Re-Assessments/Exams Free Text/Narrative Re-Assessment/Exam: Picked up this patient after brief assessment by Dr Bullock My exam as above, diffuse ecchymosis left axilla region but no deformity of evidence of fracture. Arm is soft. No evidence of head strike or neck pain, no anti-coagulation use, will defer intracranial imaging. Exam most notable for diffuse 1st and 2nd degree brannon of the back, from overuse of heat pad. Labs unremarkable with UA pending. Patient is not safe for return home. Will perform basic burn wound cares, admitted to hospitalist for further work- up and likely surgical consultation. 01/18/20 18:39 Departure - Departure Time of Disposition: 18:42 Disposition: Admitted As Inpatient 66 Clinical Impression: Second degree burn Fall Qualifiers: Encounter type: initial encounter Qualified Code(s): W19.XXXA - Unspecified fall, initial encounter - Discharge Information *PRESCRIPTION DRUG MONITORING PROGRAM REVIEWED*: No *COPY OF PRESCRIPTION DRUG MONITORING REPORT IN PATIENT BRITTNI: No Sepsis Event Note - Focused Exam Date Exam was Performed: 01/18/20 Time Exam was Performed: 18:37 - My Orders Last 24 Hours: My Active Orders 01/18/20 16:01 Shoulder Comp Lt [CR] Stat - Assessment/Plan Last 24 Hours: My Active Orders 01/18/20 16:01 Shoulder Comp Lt [CR] Stat <Pushpa Bullock - Last Filed: 01/19/20 07:41> ED HPI GENERAL MEDICAL PROBLEM - General Source of Information: Reports: Patient History Limitations: Reports: No Limitations - History of Present Illness INITIAL COMMENTS - FREE TEXT/NARRATIVE: pt arrived after falling at home and landing on his left shoulder last nite. He has not been doing alot of falling. He used his heating pad and he has brannon over most of his back mainly firts degree but some blistering. He lives with his daughter who cares for him. Onset: Other (pt fell last nite. ) Duration: Hour(s): Location: Reports: Upper Extremity, Left, Other (pt has pain in the upper extre, ity by the shoulder on the left. He has alot of bruising present. ) Associated Symptoms: Reports: Other (pt used a heating pad on his back and he has first and second degree brannon. ) Past Medical History HEENT History: Reports: Hard of Hearing, Impaired Vision Cardiovascular History: Reports: Afib, Hypertension Genitourinary History: Reports: Prostate Disorder Neurological History: Reports: Concussion Psychiatric History: Reports: Dementia Endocrine/Metabolic History: Reports: Hypothyroidism Hematologic History: Reports: Anticoagulation Therapy Social & Family History - Tobacco Use Smoking Status *Q: Former Smoker Used Tobacco, but Quit: Yes Month/Year Tobacco Last Used: 2011 - Caffeine Use Caffeine Use: Reports: Coffee - Recreational Drug Use Recreational Drug Use: No - Living Situation & Occupation Living situation: Reports: , with Family Occupation: Retired (Lives with his only Child Keeley Dickson in [place], [place]. His 7 years ago.) ED ROS GENERAL - Review of Systems Review Of Systems: See Below Constitutional: Reports: Weakness HEENT: Reports: No Symptoms Respiratory: Reports: No Symptoms Cardiovascular: Reports: No Symptoms Endocrine: Reports: No Symptoms GI/Abdominal: Reports: No Symptoms : Reports: No Symptoms Musculoskeletal: Reports: Other ( pain in left shoulder) Skin: Reports: Other ( first and second degree brannon on his back area. ) ED EXAM, GENERAL - Physical Exam Exam: See Below Exam Limited By: No Limitations General Appearance: No Apparent Distress, Other (pupils equal and reactive. ) Ears: Normal External Exam Nose: Normal Inspection Throat/Mouth: Normal Inspection Head: Atraumatic Neck: Normal Inspection Respiratory/Chest: No Respiratory Distress Cardiovascular: Regular Rate, Rhythm Back Exam: Other (pt had used a heating pad and he has first and second degree brannon over his entire bsck. ) Neurological: Alert, Oriented, Normal Cognition Psychiatric: Normal Affect Course - Orders/Labs/Meds Labs: Laboratory Tests 01/18/20 01/18/20 Range/Units 16:27 16:27 WBC 10.5 (4.5-11.0) K/uL RBC 4.36 (4.30-5.90) M/uL Hgb 13.1 (12.0-15.0) g/dL Hct 42.0 (40.0-54.0) % MCV 96 (80-98) fL MCH 30 (27-31) pg MCHC 31 L (32-36) % Plt Count 291 (150-400) K/uL Neut % (Auto) 82 H (36-66) % Lymph % (Auto) 6 L (24-44) % [place] % (Auto) 12 H (2-6) % Eos % (Auto) 0 L (2-4) % Baso % (Auto) 0 (0-1) % Sodium 140 (140-148) mmol/L Potassium 4.2 (3.6-5.2) mmol/L Chloride 106 (100-108) mmol/L Carbon Dioxide 30 (21-32) mmol/L Anion Gap 3.9 L (5.0-14.0) mmol/L BUN 23 H (7-18) mg/dL Creatinine 1.1 (0.8-1.3) mg/dL Est Cr Clr Drug Dosing 47.01 mL/min Estimated GFR (MDRD) > 60 (>60) Glucose 114 H (74-106) mg/dL Calcium 9.2 (8.5-10.1) mg/dL Total Bilirubin 1.4 H (0.2-1.0) mg/dL AST 19 (15-37) U/L ALT 20 (12-78) U/L Alkaline Phosphatase 115 (46-116) U/L Total Protein 6.3 L (6.4-8.2) g/dL Albumin 3.1 L (3.4-5.0) g/dL Globulin 3.2 (2.3-3.5) g/dL Albumin/Globulin Ratio 1.0 L (1.2-2.2) Meds: Medications Generic Name Dose Route Start Last Admin Trade Name Freq PRN Reason Stop Dose Admin Acetaminophen 650 mg 01/18/20 20:45 01/18/20 21:47 Tylenol PO 650 mg Q4H PRN Administration Pain (Mild 1-3)/fever Enoxaparin Sodium 40 mg 01/19/20 21:00 Lovenox SUBCUT BEDTIME JANE Finasteride 5 mg 01/19/20 09:00 Proscar PO DAILY JANE Haloperidol 1 mg 01/18/20 20:45 01/18/20 21:48 Haldol PO 1 mg Q2H PRN Administration Agitation Sodium Chloride 1,000 mls @ 75 mls/hr 01/18/20 20:45 01/18/20 21:50 Normal Saline IV 75 mls/hr ASDIRECTED JANE Administration Levothyroxine Sodium 100 mcg 01/19/20 07:30 Synthroid PO DAILY@0730 JANE Losartan Potassium 25 mg 01/19/20 09:00 Cozaar PO DAILY JANE Melatonin 9 mg 01/18/20 21:00 01/18/20 21:48 Melatonin PO 9 mg BEDTIME JANE Administration (Diltiazem [Dilacor 180 mg 01/19/20 09:00 Xr] 180 Mg) PO DAILY JANE Ondansetron HCl 4 mg 01/18/20 20:45 Zofran IV Q4H PRN Nausea/Vomiting (Atorvastatin [ 0 each 01/18/20 22:00 01/18/20 21:57 Lipitor] 40 Mg)*Pt PO 1 each Own Med* BEDTIME JANE Administration Polyethylene Glycol 17 gm 01/18/20 20:45 Miralax PO DAILY PRN Constipation Sodium Chloride 10 ml 01/18/20 20:45 Saline Flush FLUSH ASDIRECTED PRN Keep Vein Open Discontinued Medications Generic Name Dose Route Start Last Admin Trade Name Freq PRN Reason Stop Dose Admin Enoxaparin Sodium 40 mg 01/18/20 20:45 01/18/20 21:38 Lovenox SUBCUT 40 mg DAILY JANE Administration Sodium Chloride 1,000 mls @ 999 mls/hr 01/18/20 17:00 01/18/20 17:53 Normal Saline IV 999 mls/hr ASDIRECTED JANE Administration Sepsis Event Note - Evaluation Sepsis Screening Result: No Definite Risk - Focused Exam Date Exam was Performed: 01/19/20 Time Exam was Performed: 07:39
[2020-01-18] MEDS ORDERED: Sodium Chloride 0.9% 1,000 ML IV SCH ×2 (17:00→20:45)
--- NOTE | 2020-01-18 19:30 | PCM.HP.2 ---
H&P History of Present Illness - General Date of Service: 01/18/20 Admit Problem/Dx: Admission Diagnosis/Problem Admission Diagnosis/Problem Weakness Source of Information: Family, Provider, RN Notes Reviewed. No: Patient History Limitations: Reports: Altered Mental Status (Dementia with significant cognitive impairment) - History of Present Illness Initial Comments - Free Text/Narative: Mr. Peterson is an 89-year-old gentleman who was admitted to observation status through the emergency department with a recent history of second-degree etienne to his back, progressive weakness, and worsening cognitive impairment secondary to dementia. Mr. Peterson is unable to provide a meaningful history concerning recent symptoms or review of systems because of his significant dementia. Family reports that he has become progressively more weak with recurrent falls at home. Today he was brought into the emergency department because he was unable to get out of a chair. Evaluation shows no evidence of significant underlying infection or metabolic abnormality. He fell asleep last night on his heating pad and does have second-degree etienne on his back. - Related Data Allergies/Adverse Reactions: Allergies Allergy/AdvReac Type Severity Reaction Status Date / Time No Known Allergies Allergy Verified 08/25/19 21:00 Home Medications: Home Meds Cyanocobalamin (Vitamin B-12) [Vitamin B-12] 2 tab PO DAILY 08/25/19 [History] Diltiazem [Dilacor XR] 180 mg PO DAILY 08/25/19 [History] Finasteride 5 mg PO DAILY 08/25/19 [History] Losartan [Cozaar] 25 mg PO DAILY 08/25/19 [History] atorvaSTATin [Lipitor] 40 mg PO BEDTIME 08/25/19 [History] Cyanocobalamin (Vitamin B-12) [Vitamin B-12] 500 mcg PO DAILY 01/18/20 [History] Levothyroxine Sodium 0.1 mg PO DAILY 01/18/20 [History] Past Medical History HEENT History: Reports: Hard of Hearing, Impaired Vision Cardiovascular History: Reports: Afib, Hypertension Genitourinary History: Reports: Prostate Disorder Neurological History: Reports: Concussion Psychiatric History: Reports: Dementia Endocrine/Metabolic History: Reports: Hypothyroidism Hematologic History: Reports: Anticoagulation Therapy Social & Family History - Tobacco Use Smoking Status *Q: Former Smoker Used Tobacco, but Quit: Yes Month/Year Tobacco Last Used: 2011 - Caffeine Use Caffeine Use: Reports: Coffee - Recreational Drug Use Recreational Drug Use: No - Living Situation & Occupation Living situation: Reports: , with Family Occupation: Retired (Lives with his only Child Keeley Dickson in [place], [place]. His 7 years ago.) H&P Review of Systems - Review of Systems: Review Of Systems: See Below General: Reports: ROS unobtainable (Secondary to dementia) Exam - Exam Exam: See Below - Vital Signs Vital Signs: Last Vital Signs Temp 97.0 F 01/18/20 15:57 Pulse 69 01/18/20 16:51 Resp 16 01/18/20 15:57 BP 155/84 H 01/18/20 16:51 Pulse Ox 96 01/18/20 16:51 Weight: 200 lb - Exam Quality Assessment: DVT Prophylaxis General: Alert, Mild Distress. No: Oriented, Cooperative HEENT: Conjunctiva Clear, Normal Nasal Septum, Posterior Pharynx Clear, Pupils Equal. No: Hearing Intact, Mucosa Moist & [place] Neck: Supple, Trachea Midline, +2 Carotid Pulse wo Bruit Lungs: Clear to Auscultation, Normal Respiratory Effort Cardiovascular: Regular Rate, Regular Rhythm, Normal S1, Normal S2. No: Systolic Murmur, Diastolic Murmur GI/Abdominal Exam: Soft, Non-Tender, No Organomegaly, No Distention Back Exam: Normal Inspection, Full Range of Motion Extremities: Non-Tender, No Pedal Edema Skin: Other (Scattered second-degree etienne over his back) Neurological: Cranial Nerves Intact, Strength Equal Bilateral, Normal Speech, Normal Tone, Sensation Intact Neuro Extensive - Mental Status: Alert, Disorientation to Person, Disorientation to Place, Disorientation to Time, Memory Loss-Remote Events, Memory Loss-Recent Events. No: Oriented x3, Normal Cognition, Memory Intact - Patient Data Lab Results Last 24 hrs: Laboratory Results - last 24 hr 01/18/20 01/18/20 Range/Units 16:27 16:27 WBC 10.5 (4.5-11.0) K/uL RBC 4.36 (4.30-5.90) M/uL Hgb 13.1 (12.0-15.0) g/dL Hct 42.0 (40.0-54.0) % MCV 96 (80-98) fL MCH 30 (27-31) pg MCHC 31 L (32-36) % Plt Count 291 (150-400) K/uL Neut % (Auto) 82 H (36-66) % Lymph % (Auto) 6 L (24-44) % [place] % (Auto) 12 H (2-6) % Eos % (Auto) 0 L (2-4) % Baso % (Auto) 0 (0-1) % Sodium 140 (140-148) mmol/L Potassium 4.2 (3.6-5.2) mmol/L Chloride 106 (100-108) mmol/L Carbon Dioxide 30 (21-32) mmol/L Anion Gap 3.9 L (5.0-14.0) mmol/L BUN 23 H (7-18) mg/dL Creatinine 1.1 (0.8-1.3) mg/dL Est Cr Clr Drug Dosing 47.01 mL/min Estimated GFR (MDRD) > 60 (>60) Glucose 114 H (74-106) mg/dL Calcium 9.2 (8.5-10.1) mg/dL Total Bilirubin 1.4 H (0.2-1.0) mg/dL AST 19 (15-37) U/L ALT 20 (12-78) U/L Alkaline Phosphatase 115 (46-116) U/L Total Protein 6.3 L (6.4-8.2) g/dL Albumin 3.1 L (3.4-5.0) g/dL Globulin 3.2 (2.3-3.5) g/dL Albumin/Globulin Ratio 1.0 L (1.2-2.2) Result Diagrams: 01/18/20 16:27 01/18/20 16:27 Sepsis Event Note - Evaluation Sepsis Screening Result: No Definite Risk - Focused Exam Vital Signs: Vital Signs Temp Pulse Resp BP Pulse Ox 01/18/20 16:51 69 155/84 H 96 01/18/20 15:57 97.0 F 74 16 165/69 H 96 01/18/20 15:49 97.0 F 74 16 165/69 H 96 Date Exam was Performed: 01/18/20 Time Exam was Performed: 20:02 *Q Meaningful Use (ADM) - VTE Risk Assess *Q Each Risk Factor Represents 1 Point: Obesity ( BMI > 25 kg/m2) Total Score 1 Point Risk Factors: 1 Each Risk Factor Represents 2 Points: None Total Score 2 Point Risk Factors: 0 Each Risk Factor Represents 3 Points: Age 75 Years or Greater Total Score 3 Point Risk Factors: 3 Each Risk Factor Represents 5 Points: None Total Score 5 Point Risk Factors: 0 Venous Thromboembolism Risk Factor Score *Q: 4 Problem List Initiated/Reviewed/Updated: Yes Orders Last 24hrs: Active Orders 24 hr Category Date Time Status Patient Status Manage Transfer [TRANSFER] Routine ADT 01/18/20 19:17 Ordered Shoulder Comp Lt [CR] Stat Exams 01/18/20 16:01 Taken UA W/MICROSCOPIC [URIN] Urgent Lab 01/18/20 16:15 Ordered Sodium Chloride 0.9% [Normal Saline] 1,000 ml Med 01/18/20 17:00 Active IV ASDIRECTED Resuscitation Status Routine Resus Stat 01/18/20 19:20 Ordered Medication Orders Sodium Chloride (Normal Saline) 1,000 mls @ 999 mls/hr IV ASDIRECTED JANE Last Admin: 01/18/20 17:53 Dose: 999 mls/hr Assessment/Plan Comment:: ASSESSMENT AND PLAN WEAKNESS-likely secondary to his progressive dementia, no evidence of significant metabolic abnormality or infection. Family is no longer able to care for him at home -Observation admission to facilitate placement -Physical therapy consult in a.m. SECOND-DEGREE ETIENNE ON HIS BACK-he fell asleep on the heating pad last night -Continue dressing placed in the emergency department -Consult Dr. Grider in a.m. for wound management DEMENTIA-progressive cognitive impairment, mild agitation -Melatonin 9 mg p.o. nightly -Haldol 1 mg p.o. every 2 hours as needed MAINTENANCE ISSUES -DVT prophylaxis; Lovenox 40 mg subcu daily -GI prophylaxis; not indicated -Ruiz catheter; not indicated -Nutrition; 2 g sodium diet -Nicotine dependence; not required CODE STATUS-DNR/DNI ADMISSION STATUS-this patient will be admitted to observation status, expect no more than a one night hospital stay for evaluation and management of problems as outlined above. DISPOSITION-anticipate discharge to home after the hospital stay. PRIMARY CARE PROVIDER- - Mortality Measure Prognosis:: Good
[2020-01-18] MEDS ORDERED: Ondansetron 4 MG/2 ML SDV IV PRN (20:45)
[2020-01-18] MEDS ORDERED: Polyethylene Glycol 3350 Powder 17 GM Packet PO PRN (20:45)
[2020-01-18] MEDS ORDERED: Sodium Chloride 0.9% 10 ML Syringe FLUSH PRN (20:45)
[2020-01-18] MEDS ORDERED: Enoxaparin 40 MG/0.4 ML Syringe SUBCUT SCH (20:45)
[2020-01-18] MEDS: Acetaminophen 325 MG Tab PO PRN (21:47)
[2020-01-18] MEDS: Melatonin 3 MG Tab PO SCH (21:48)
[2020-01-18] MEDS: Haloperidol 1 MG Tab PO PRN (21:48)
[2020-01-19] MEDS ORDERED: Levothyroxine 100 MCG Tab PO SCH (07:30)
[2020-01-19] MEDS: Acetaminophen 325 MG Tab PO PRN ×3 (08:00→20:27)
[2020-01-19] MEDS: LEVOTHYROXINE 100 MCG PO SCH (08:37)
[2020-01-19] MEDS: FINASTERIDE 5 MG PO SCH (08:38)
[2020-01-19] MEDS: DILTIAZEM 180 MG PO SCH (08:38)
[2020-01-19] MEDS: LOSARTAN 25 MG PO SCH (08:39)
--- NOTE | 2020-01-19 09:07 | CR ---
Shoulder Comp Lt CLINICAL HISTORY: Injury FINDINGS: There is no acute fracture or dislocation in the left shoulder. There is osteoarthritic change in the glenohumeral joint. There is minimal periarticular ossifications. The these may represent loose bodies. Impression: No fracture or dislocation Osteoarthritis
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
[2020-01-19] MEDS ORDERED: methylPREDNISolone Sodium Succinate 40 MG/1 ML SDV IVPUSH SCH (16:00)
[2020-01-19] MEDS ORDERED: Ampicillin/Sulbactam Na 1.5 GM in Sodium Chloride 0.9% 50 ML IV SCH (16:00)
[2020-01-19] MEDS: Melatonin 3 MG Tab PO SCH (20:28)
[2020-01-19] MEDS: Haloperidol 1 MG Tab PO PRN (20:28)
[2020-01-19] MEDS ORDERED: Enoxaparin 40 MG/0.4 ML Syringe SUBCUT SCH (21:00)
[2020-01-20] MEDS: Acetaminophen 325 MG Tab PO PRN (02:12)
[2020-01-20] MEDS: Haloperidol 1 MG Tab PO PRN (02:12)
[2020-01-20] MEDS: LEVOTHYROXINE 100 MCG PO SCH (07:35)
[2020-01-20] MEDS: FINASTERIDE 5 MG PO SCH (08:42)
[2020-01-20] MEDS: DILTIAZEM 180 MG PO SCH ×2 (08:43→10:10)
[2020-01-20] MEDS: LOSARTAN 25 MG PO SCH (08:47)
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
== END 2020-01-20 10:14 ==
LOC: JP.ED 15:45 → JP.ICU 19:17
PROVIDERS: ADMIT Hospitalist; ATTEND Hospitalist
DX: T21.24XA Burn of second degree of lower back, initial encounter (principal); T31.0 Burns involving less than 10% of body surface; M25.512 Pain in left shoulder; R53.1 Weakness; G30.1 Alzheimer's disease with late onset; F02.80 Dementia in other diseases classified elsewhere, unspecified severity, without behavioral disturbance, psychotic disturbance, mood disturbance, and anxiety; I48.91 Unspecified atrial fibrillation; I10 Essential (primary) hypertension; E03.9 Hypothyroidism, unspecified; E66.9 Obesity, unspecified; Z68.30 Body mass index [BMI] 30.0-30.9, adult; Z79.899 Other long term (current) drug therapy; Z79.01 Long term (current) use of anticoagulants; Z87.891 Personal history of nicotine dependence; X16.XXXA Contact with hot heating appliances, radiators and pipes, initial encounter; W19.XXXA Unspecified fall, initial encounter
CPT/HCPCS: 36415; 73030; 73060; 80053; 81001; 84443; 85025; 96360; 96372; 97162; 99285; A9270; G0378; J1650; J7030